=== PATIENT | male | born 1960 | race Caucasian/White ===

== ENCOUNTER 2018-03-10 00:41 | Emergency (ER) | payer OTHER ==
[~2018-03-10] VITALS: Ht 180.3 cm; Wt 116.7 kg
[~2018-03-10 00:41] MED LIST: LISI-363 PO; PERC5TAB12 PO
[2018-03-10 00:44] VITALS: BP 164/105; PULSE 113; RESP 20; TEMP 98.3; O2SAT 94
--- NOTE | 2018-03-10 01:43 | PD ---
HPI Chief Complaint: Medical Clearance Time Seen by Provider: 01:08 Travel History International Travel<30 days: No Contact w/Intl Traveler<30days: No Traveled to known affect area: No History of Present Illness HPI Is a 57-year-old man who presents to the emergency department after he reports he was discharged from [facility]. Reports that he was admitted a week ago with anasarca and edema in an shortness of breath and was diagnosed with new diagnosis of CHF and what sounds like COPD and lung disease. He has a history of tobacco use. Reports leg swelling and abdominal swelling. He was treated with IV diuretics and is currently also IV antibiotics and some breathing medicines. Tonight he was smoking in the bathroom and was called by the nurse. He admitted to it. Apparently they want him to sign a behavior contract, be subject to a surgeon, and be placed on visitor restriction with no visitors. He was unwilling to agree to the visitor restriction and was apparently discharged. He was not given a copy of his records, medication list , or prescriptions. Patient states he feels overall improved, still little bit short of breath at times. He states he is due to get a chemical stress tomorrow and they are planning on doing a heart catheterization with Dr. Ross. History Past Medical History Narrative Medical Apparently new diagnosis CHF, possible COPD Social History Alcohol Use: Yes (8 BEERS PER DAY) Tobacco Use: Yes (2 PPD) Allergies-Medications (Allergen,Severity, Reaction): Coded Allergies: amoxicillin (Unverified Allergy, Mild, HIVES, 06/21/17) penicillin G (Unverified Allergy, Mild, HIVES, 06/21/17) Reported Meds & Prescriptions Reported Meds & Active Scripts Active Percocet 5-325 mg (Oxycodone/Acetaminophen) Oxycodone 5/325 Acetaminophen Tab 1- 2 Tab PO Q4H PRN Reported Lisinopril 20 mg (Lisinopril) 20 Mg Tab 20 Mg PO DAILY Review of Systems Except as stated in HPI: all other systems reviewed are Neg Physical Exam Narrative GENERAL: 57-year-old man, no acute distress. SKIN: Focused skin assessment warm/dry. HEAD: Atraumatic. Normocephalic. EYES: Pupils equal and round. No scleral icterus. No injection or drainage. ENT: No nasal bleeding or discharge. Mucous membranes pink and moist. NECK: Trachea midline. No JVD. CARDIOVASCULAR: Regular rate and rhythm. No murmur appreciated. RESPIRATORY: Coarse breath sounds with some wheezing. GASTROINTESTINAL: Abdomen soft, non-tender, nondistended. Hepatic and splenic margins not palpable. MUSCULOSKELETAL: No obvious deformities. No clubbing. No cyanosis. No edema. NEUROLOGICAL: Awake and alert. No obvious cranial nerve deficits. Motor grossly within normal limits. Normal speech. PSYCHIATRIC: Appropriate mood and affect; insight and judgment normal. Data Data Last Documented VS Vital Signs Date Time Temp Pulse Resp B/P (MAP) Pulse Ox O2 Delivery O2 Flow Rate FiO2 03/10/18 03:03 92 22 129/79 (96) 95 Room Air 03/10/18 02:03 95 03/10/18 00:44 98.3 Orders Orders Electrocardiogram (03/10/18 01:32) B-Type Natriuretic Peptide (03/10/18 01:32) Complete Blood Count With Diff (03/10/18 01:32) Comprehensive Metabolic Panel (03/10/18 01:32) Magnesium (Mg) (03/10/18 01:32) Troponin I (03/10/18 01:32) Ecg Monitoring (03/10/18 01:32) Iv Access Insert/Monitor (03/10/18 01:32) Oximetry (03/10/18 01:32) Oxygen Administration (03/10/18 01:32) Sodium Chloride 0.9% Flush (Ns Flush) (03/10/18 01:45) Chest, Pa & Lat (03/10/18 01:32) Labs Laboratory Tests Test 03/10/18 02:00 White Blood Count 13.7 TH/MM3 Red Blood Count 5.91 MIL/MM3 Hemoglobin 15.1 GM/DL Hematocrit 46.2 % Mean Corpuscular Volume 78.1 FL Mean Corpuscular Hemoglobin 25.5 PG Mean Corpuscular Hemoglobin Concent 32.6 % Red Cell Distribution Width 16.9 % Platelet Count 125 TH/MM3 Mean Platelet Volume 9.5 FL Neutrophils (%) (Auto) 93.1 % Lymphocytes (%) (Auto) 2.6 % Monocytes (%) (Auto) 4.1 % Eosinophils (%) (Auto) 0.0 % Basophils (%) (Auto) 0.2 % Neutrophils # (Auto) 12.8 TH/MM3 Lymphocytes # (Auto) 0.4 TH/MM3 Monocytes # (Auto) 0.6 TH/MM3 Eosinophils # (Auto) 0.0 TH/MM3 Basophils # (Auto) 0.0 TH/MM3 CBC Comment DIFF FINAL Differential Comment Blood Urea Nitrogen 39 MG/DL Creatinine 1.07 MG/DL Random Glucose 173 MG/DL Total Protein 8.2 GM/DL Albumin 3.7 GM/DL Calcium Level 8.9 MG/DL Magnesium Level 2.3 MG/DL Alkaline Phosphatase 106 U/L Aspartate Amino Transf (AST/SGOT) 33 U/L Alanine Aminotransferase (ALT/SGPT) 27 U/L Total Bilirubin 0.6 MG/DL Sodium Level 136 MEQ/L Potassium Level 5.1 MEQ/L Chloride Level 96 MEQ/L Carbon Dioxide Level 32.6 MEQ/L Anion Gap 7 MEQ/L Estimat Glomerular Filtration Rate 71 ML/MIN Troponin I 0.04 NG/ML B-Type Natriuretic Peptide 301 PG/ML [facility] Medical Decision Making Medical Screen Exam Complete: Yes Emergency Medical Condition: Yes Interpretation(s) My review of EKG: Normal sinus rhythm at a rate of 99, normal axis, anterior precordial Q waves in V1 and V2 suggestive of septal infarct, no definite evidence of acute ischemia. Chest x-ray: Negative. LABS: CBC remarkable for mild leukocytosis CMP remarkable for mildly elevated bicarb. Troponin negative. BNP 301. Differential Diagnosis CHF, COPD, pneumonia, renal failure, other Narrative Course Medical decision making 57 Kevin presents to the emergency department after being discharged from [facility] for apparently refusing to accept physical restriction after he was caught smoking in the bathroom. Not sure why he was on antibiotics. Presumably they could not tell if he had pneumonia or not he had pulmonary infiltrates. He looks much better. He has some trace edema in his ankles. Some coarse breath sounds. Is not short of breath at all. Will check x-ray and labs and EKG. We will try to get records of his medications. Decide if needs to come back in the hospital or not. FINAL: Spoke with nursing desk clerks supervisor at [facility]. Reviewed records from [facility]. Apparently visited her and patient were both smoking in the bathroom. No indications for hospital admission at this point. Would recommend that he follow-up with his clinical psychologist licensed as an outpatient. Would recommend that he establish with a primary. We will give him a referral to [facility]. We will start him on his medications including an SALBADOR inhibitor, continue antibiotics bronchodilators and steroids, continue Lasix. Diagnosis Primary Impression: CHF (congestive heart failure) Additional Impression: COPD (chronic obstructive pulmonary disease) Referrals: [facility] 1 week Patient Instructions: General Instructions Additional Instructions: Take medications as prescribed. Follow-up with your clinical psychologist licensed as planned. Follow-up primary physician as planned. Referral given for [facility]. Med/Other Pt SpecificInfo: Prescription(s) given Scripts Furosemide (Furosemide) 40 Mg Tab 40 MG PO DAILY, #30 TAB 0 Refills Prov: David Hudson MD 03/10/18 Prednisone (Deltasone) 20 Mg Tab 60 MG PO DAILY for 2 Days, #6 TAB 0 Refills Prov: David Hudson MD 03/10/18 Lisinopril (Lisinopril) 5 Mg Tab 5 MG PO DAILY for Blood Pressure Management, #30 TAB 0 Refills Prov: David Hudson MD 03/10/18 Albuterol 18 GM Inh (Ventolin Hfa 18 GM Inh) 90 Mcg/Act Aer 2 PUFF INH Q4-6H Y for SHORTNESS OF BREATH, #1 INHALER 0 Refills Prov: David Hudson MD 03/10/18 Doxycycline Hyclate (Doxycycline Hyclate) 100 Mg Cap 100 MG PO BID for Infection for 7 Days, #14 CAP 0 Refills Prov: David Hudson MD 03/10/18 Disposition: 01 DISCHARGE HOME Condition: Stable David Hudson MD March 10, 2018 01:43
[2018-03-10] MEDS ORDERED: SODIUM CHLORIDE 0.9% FLUSH 10 ML FLUSH IVF PRN (01:45)
[2018-03-10 02:03] VITALS: BP 143/91; PULSE 92; RESP 20
--- NOTE | 2018-03-10 02:11 | RADRPT ---
EXAM DATE/TIME: 03/10/2018 01:47 [facility] COMPARISON: No previous studies available for comparison. INDICATIONS : Short of breath. MEDICAL HISTORY : Congestive heart failure. Hepatitis C. SURGICAL HISTORY : Tonsillectomy. Right wrist. ENCOUNTER: Initial ACUITY: 4 - 6 days PAIN SCORE: 0/10 LOCATION: Bilateral chest FINDINGS: PA and lateral views of the chest demonstrate the lungs to be symmetrically aerated without evidence of mass, infiltrate or effusion. The cardiomediastinal contours are unremarkable. Osseous structure s are intact. CONCLUSION: No acute disease. Mark Sanderson MD on March 10, 2018 at 2:08 Board Certified Radiologist. This report was verified electronically.
[2018-03-10 02:19] LABS: AUTOMATED NEUTROPHIL # 12.8 TH/MM3 (1.8-7.7); BASOPHIL % 0.2 % (0.0-2.0); HEMATOCRIT 46.2 % (39.0-51.0); HEMOGLOBIN 15.1 GM/DL (13.0-17.0); LYMPH % 2.6 % (9.0-44.0); LYMPHOCYTE # 0.4 TH/MM3 (1.0-4.8); MEAN CELL VOLUME 78.1 FL (80.0-100.0); MEAN CORPUSCULAR HEMOGLOBIN 25.5 PG (27.0-34.0); MEAN CORPUSCULAR HGB CONC 32.6 % (32.0-36.0); MEAN PLATELET VOLUME 9.5 FL (7.0-11.0); MONO % 4.1 % (0.0-8.0); MONOCYTE # 0.6 TH/MM3 (0-0.9); NEUT % 93.1 % (16.0-70.0); PLATELET COUNT 125 TH/MM3 (150-450); RED BLOOD COUNT 5.91 MIL/MM3 (4.50-5.90); RED CELL DISTRIBUTION WIDTH 16.9 % (11.6-17.2); WHITE BLOOD COUNT 13.7 TH/MM3 (4.0-11.0)
[2018-03-10 02:41] LABS: ALKALINE PHOSPHATASE 106 U/L (45-117); TOTAL BILIRUBIN ADULT 0.6 MG/DL (0.2-1.0); TOTAL PROTEIN 8.2 GM/DL (6.4-8.2); TROPONIN I 0.04 NG/ML (0.02-0.05)
[2018-03-10 02:51] LABS: ALBUMIN 3.7 GM/DL (3.4-5.0); ALT (GPT) 27 U/L (12-78); AST (GOT) 33 U/L (15-37); BICARBONATE 32.6 MEQ/L (21.0-32.0); BLOOD UREA NITROGEN 39 MG/DL (7-18); CALCIUM 8.9 MG/DL (8.5-10.1); CHLORIDE 96 MEQ/L (98-107); CREATININE 1.07 MG/DL (0.60-1.30); GLOMERULAR FILTRATION RATE 71 ML/MIN (>89); GLUCOSE,RANDOM 173 MG/DL (74-106); MAGNESIUM 2.3 MG/DL (1.5-2.5); SODIUM (NA) 136 MEQ/L (136-145)
[2018-03-10 03:03] VITALS: BP 129/79; PULSE 92; RESP 22; O2SAT 95
[2018-03-10] MEDS ORDERED: FURO40TA PO (03:15)
[2018-03-10] MEDS ORDERED: DOXY100C PO (03:15)
[2018-03-10] MEDS ORDERED: VENTAER INH (03:15)
[2018-03-10] MEDS ORDERED: RESP: ALBUTEROL 2.5 MG/IPRATROPIUM 0.5 MG NEB (SCH) NEB ONE (03:15)
[2018-03-10] MEDS ORDERED: LISI-519 PO (03:15)
[2018-03-10] MEDS ORDERED: ALBUTEROL SULFATE 90 MCG/ACT HFA 8 GM INHALER INH ONE (03:15)
[2018-03-10] MEDS ORDERED: PRED-503 PO (03:15)
[2018-03-10 03:52] VITALS: BP 127/73
--- NOTE | 2018-03-10 14:09 | EKG ---
Date Performed: 03/10/2018 Time Performed: 01:54:53 PTAGE: 57 years EKG: Sinus rhythm POSSIBLE LEFT ATRIAL ENLARGEMENT SEPTAL MYOCARDIAL INFARCTION When compared to previous tracing, sin us rate has increased. Poor R wave progression is slightly worse due to lead placement. There is mini mal anterolateral ST depression which are Nonspecific. ABNORMAL ECG PREVIOUS TRACING : 07/19/2013 14.30 DOCTOR: Lio Nguyen Interpretating Date/Time 03/10/2018 14:07:51
== END 2018-03-10 04:00 | disposition home or self-care (01) ==
LOC: NEPE 00:41
DX: I50.9 Heart failure, unspecified (principal); R94.31 Abnormal electrocardiogram [ECG] [EKG]; J44.9 Chronic obstructive pulmonary disease, unspecified; D72.829 Elevated white blood cell count, unspecified; F17.200 Nicotine dependence, unspecified, uncomplicated; Z88.0 Allergy status to penicillin; Z79.899 Other long term (current) drug therapy; Z87.891 Personal history of nicotine dependence
CPT/HCPCS: 71046; 80053; 83735; 83880; 84484; 85025; 93005; 99285